=== PATIENT | male | born 1970 | race Caucasian/White ===

== ENCOUNTER 2018-02-10 02:21 | Emergency (ER) | payer OTHER ==
[~2018-02-10] VITALS: Ht 185.4 cm; Wt 102.1 kg
[2018-02-10 02:30] VITALS: BP 143/90
[2018-02-10 03:30] VITALS: BP 143/90
--- NOTE | 2018-02-13 06:25 | Emergency Room Report ---
History of Present Illness General Chief Complaint: Skin Rash/Abscess Source: Patient Present Illness HPI Patient 47-year-old male who presented after increased the upper extremity pain. Patient reports having gradual onset of symptoms. Patient reports having increased pain. He denies any fever. He reports having recent contact he had similar symptoms. The patient noticed increased skin rash with increased swelling. Allergies: Coded Allergies: No Known Allergies (Unverified , 02/10/18) Patient History Past Medical History: see triage record Reviewed Nursing Documentation: PMH: Agreed; PSxH: Agreed Nursing Documentation-PMH Hx Cardiac Problems: Yes - 9-stents, CAD Review of Systems All Other Systems: negative except mentioned in HPI Physical Exam Vital Signs Date Time Temp Pulse Resp B/P (MAP) Pulse Ox O2 Delivery O2 Flow Rate FiO2 02/10/18 02:27 98.1 79 16 143/90 94 98.1 02/10/18 02:30 Room Air General Appearance: well appearing, no apparent distress, alert, GCS 15, non- toxic Head: normocephalic, atraumatic ENT: hearing grossly normal, normal voice Neck: full range of motion, supple Respiratory: no respiratory distress, speaking full sentences Gastrointestinal: normal inspection Musculoskeletal: no calf tenderness Neurologic: normal inspection, alert, oriented x3, responsive, normal gait Psychiatric: mood/affect normal Skin: other - abscess with fluctuance left upper extremity Medical Decision Making Diagnostic Impression: Primary Impression: Abscess ER Course Patient presented for skin rash. Differential diagnosis included was not limited to abscess, cellulitis, folliculitis, infected lymph node among others. The patient was seen and examined by me in emergency department. The patient was noted to have evidence of abscess. Prior to incision and drainage patient eloped without notifying staff. Last Vital Signs Date Time Temp Pulse Resp B/P (MAP) Pulse Ox O2 Delivery O2 Flow Rate FiO2 02/10/18 03:30 98.1 67 16 143/90 95 Room Air 98.1 Status: unchanged Disposition: ELOPED Condition: Unknown Referrals: [facility],REFERR[facility] (PCP) Phil Garvey MD Feb 13, 2018 06:25
== END 2018-02-10 05:30 | disposition left against medical advice (07) ==
LOC: EMR 03:47
DX: L02.414 Cutaneous abscess of left upper limb (principal); Z53.21 Procedure and treatment not carried out due to patient leaving prior to being seen by health care provider
CPT/HCPCS: 99282